=== PATIENT | male | born 1985 | race African-American/Black ===

== ENCOUNTER 2020-11-10 22:06 | Emergency (ER) | payer OTHER ==
[~2020-11-10] VITALS: Ht 160 cm; Wt 73.9 kg
[2020-11-11 01:11] VITALS: BP 122/80
== END 2020-11-11 01:13 | disposition left against medical advice (07) ==
LOC: M.ERS 22:06
DX: M25.511 Pain in right shoulder (principal); M25.531 Pain in right wrist; V89.2XXA Person injured in unspecified motor-vehicle accident, traffic, initial encounter; Y93.89 Activity, other specified; Y92.488 Other paved roadways as the place of occurrence of the external cause; Y99.8 Other external cause status

== ENCOUNTER 2020-11-15 15:47 | Emergency (ER) | payer OTHER ==
[~2020-11-15] VITALS: Ht 160 cm; Wt 73.5 kg
[2020-11-15] MEDS ORDERED: MOBIC7.5 MG PO (17:15)
[2020-11-15] MEDS ORDERED: FLEXERIL PO (17:15)
[2020-11-15 17:54] VITALS: BP 123/54
== END 2020-11-15 17:54 | disposition home or self-care (01) ==
LOC: M.ERS 15:47
DX: M54.5 Low back pain (principal); M25.512 Pain in left shoulder; V43.62XA Car passenger injured in collision with other type car in traffic accident, initial encounter; Y93.89 Activity, other specified; Y92.89 Other specified places as the place of occurrence of the external cause; Y99.8 Other external cause status